=== PATIENT | male | born 1975 | race Hispanic/Latino ===

== ENCOUNTER 2021-01-20 06:41 | Day surgery (SDC) | payer OTHER ==
[2021-01-16 11:19] LABS: BASOPHILS % (AUTO) 0.9 % (0.0-5.0); EOSINOPHILS % (AUTO) 1.2 % (0.0-8.0); HEMATOCRIT 45.7 % (42-54); LYMPHOCYTES % (AUTO) 38.3 % (21.0-51.0); MEAN CORPUSCULAR HEMOGLOBIN 29.7 pg (27.0-33.0); MEAN CORPUSCULAR HGB CONC 33.3 g/dL (32.0-36.0); MEAN CORPUSCULAR VOLUME 89.4 fL (79-99); MONOCYTES % (AUTO) 7.6 % (3.0-13.0); NEUTROPHILS % (AUTO) 51.5 % (40.0-77.0); PLATELET COUNT (AUTO) 209 K/uL (130-400); RED BLOOD CELL COUNT(AUTO) 5.11 MIL/uL (4.50-6.20); RED CELL DISTRIBUTION WIDTH 13.2 % (11.0-15.5); WHITE BLOOD COUNT (AUTO) 5.8 K/uL (4.8-10.8)
[2021-01-16 11:20] LABS: CREATININE 0.9 mg/dL (0.5-1.5)
[2021-01-17 11:40] VITALS: BP 127/80
[~2021-01-20] VITALS: Ht 177.8 cm; Wt 106.7 kg
[2021-01-20] VITALS (19 sets, daily range): BP systolic 116–134; BP diastolic 74–85
[~2021-01-20 06:41] MED LIST: HYDR-4060 PO; IBUP-2071 PO
[2021-01-20] MEDS ORDERED: LACTATED RINGERS 1000ML 1,000 ML IV ONE (07:18)
[2021-01-20] MEDS: CEFAZOLIN SODIUM 1 GM VIAL IVP ONE ×2 (07:31→08:18)
[2021-01-20] MEDS ORDERED: LIDOCAINE PF 100MG/5ML (2%) SYRINGE 5ML ONE (07:33)
[2021-01-20] MEDS ORDERED: ONDANSETRON 4MG INJ ONE (07:34)
[2021-01-20] MEDS ORDERED: FENTANYL CITRATE PF 50 MCG/1 ML 2ML VIAL ONE ×2 (07:34→08:44)
[2021-01-20] MEDS ORDERED: MIDAZOLAM HCL 1 MG/ML 2ML VIAL ONE (07:34)
[2021-01-20] MEDS ORDERED: PROPOFOL 10 MG/ML 20ML VIAL IV ONE (07:34)
[2021-01-20] MEDS ORDERED: DEXAMETHASONE SOD PHOSPHATE 10MG/ML 1ML VIAL ONE (07:34)
[2021-01-20] MEDS ORDERED: MEPERIDINE-PF 25 MG/ML SYG ONE ×2 (07:36→09:58)
[2021-01-20] MEDS ORDERED: KETOROLAC 30MG VIAL (30MG/ML) ONE (09:11)
[2021-01-20] MEDS ORDERED: CEPH500B PO (09:16)
[2021-01-20] MEDS ORDERED: ACET1TAB25 PO (09:27)
== END 2021-01-20 11:10 | disposition home or self-care (01) ==
LOC: DAH 06:41
PROVIDERS: ATTEND Orthopaedic Surgery
DX: M23.321 Other meniscus derangements, posterior horn of medial meniscus, right knee (principal); M23.341 Other meniscus derangements, anterior horn of lateral meniscus, right knee; Z20.822 Contact with and (suspected) exposure to COVID-19; M23.351 Other meniscus derangements, posterior horn of lateral meniscus, right knee; M22.41 Chondromalacia patellae, right knee; Z79.899 Other long term (current) drug therapy
CPT/HCPCS: 29880; 36415; 80048; 85025; 87635; A4213; A4215; A4221; A4222; A4223; A4606; A4649 ×3; A4663; A4930; A5120; A6223; C9803; J0690; J1100; J1885; J2001; J2175 ×2; J2250; J2405; J2704; J3010 ×2; J7120 ×2